=== PATIENT | male | born 1970 ===

== ENCOUNTER 2025-03-02 12:53 | Emergency (ER) | payer OTHER, SELFPAY ==
[2025-03-02 13:28] VITALS: BP 177/99; PULSE 85; RESP 17; TEMP 36.7; O2SAT 99; BMI 29.9
--- NOTE | 2025-03-02 13:30 | EKG_ITS ---
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
--- NOTE | 2025-03-02 13:33 | DI.RAD.S_ITS ---
PROCEDURE: XR CHEST 1V INDICATIONS: Chest Pain TECHNIQUE: One view of the chest was acquired. COMPARISON: None. FINDINGS: Surgical changes and devices: None. Lungs and pleura: Lungs are clear. No pleural effusions or pneumothorax. Mediastinum: Mediastinal contours appear normal. Heart size is normal. Bones and chest wall: No suspicious bony lesions. Overlying soft tissues appear unremarkable. IMPRESSION: No acute cardiopulmonary abnormality is seen. Dictated by: Benjamin John M.D. on 03/02/2025 at 14:23 Approved by: Benjamin John M.D. on 03/02/2025 at 14:23
--- NOTE | 2025-03-02 14:17 | DI.CT.S_ITS ---
PROCEDURE: CT ANGIO HEAD AND NECK INDICATIONS: L arm numbness TECHNIQUE: After the administration of intravenous contrast, 1 mm thick sections acquired from the aortic arch through the [place] of [place]. 3-dimensional rpyxmdo-wyxdzbdvs-rmiylpwdcy (MIP) and/or volume rendering reformats were acquired of the central intracranial vasculature and neck separately. For radiation dose reduction, the following was used: automated exposure control, adjustment of mA and/or kV according to patient size. COMPARISON: None. FINDINGS: Image quality: Diagnostic. Cerebral CT Angiogram: Internal carotid arteries: No acute findings. Intracranial ICA are patent with no significant stenosis. No occlusion. No aneurysm. Anterior cerebral arteries: Unremarkable. No significant stenosis. No occlusion. No aneurysm. Middle cerebral arteries: Unremarkable. No significant stenosis. No occlusion. No aneurysm. Posterior cerebral arteries: Unremarkable. No significant stenosis. No occlusion. No aneurysm. Basilar artery: Unremarkable. No significant stenosis. No occlusion. No aneurysm. Vertebral arteries: Dominant right vertebral artery. Dural venous sinuses: Unremarkable given phase of enhancement. Other: Poor dentition, with multiple periapical lucencies. Neck CT Angiogram: Internal carotid arteries: Unremarkable. No significant stenosis. No dissection or occlusion. Common carotid arteries: Unremarkable. No significant stenosis. No dissection or occlusion. External carotid arteries: Unremarkable. No occlusion. Vertebral arteries: Dominant right vertebral artery with diminutive left vertebral artery throughout its course. Aortic Arch and Mediastinum: Partially visualized aortic arch unremarkable without evidence of aneurysm. Origins of the great vessels unremarkable. Other: Arterial phase soft tissues of the neck and chest are unremarkable. IMPRESSION: No significant intracranial arterial abnormality is seen. No significant abnormality is seen within the arteries of the neck. Poor dentition, with multiple caries and periapical lucencies. Dental referral is recommended. Any quantitative measurements of stenosis were performed using NASCET criteria. Dictated by: Benjamin John M.D. on 03/02/2025 at 15:50 Approved by: Benjamin John M.D. on 03/02/2025 at 15:53
--- NOTE | 2025-03-02 14:17 | DI.CT.S_ITS ---
PROCEDURE: CT HEAD/BRAIN WO CON INDICATIONS: L arm numbness TECHNIQUE: Noncontrast 4.5 mm thick angled axial sections acquired from the foramen magnum to the vertex, with coronal and sagittal reformats. For radiation dose reduction, the following was used: automated exposure control, adjustment of mA and/or kV according to patient size. COMPARISON: None. FINDINGS: Image quality: Diagnostic. CSF spaces: Basal cisterns are patent. No extra-axial fluid collections. The ventricles are symmetric in size and shape. Brain: No intracranial bleeds or mass effect. There is cerebral volume loss, with resultant ventricular and sulcal prominence. There are periventricular and deep white matter chronic small vessel ischemic changes. There is intracranial internal carotid artery atherosclerosis. Skull and face: Calvarium and visualized facial bones appear intact, without suspicious lesions. A couple of subdermal cystic lesions with hyperattenuating components, presumably epidermal inclusion cysts. Sinuses: Visualized sinuses and mastoids are clear. IMPRESSION: No acute intracranial pathology. Dictated by: Benjamin John M.D. on 03/02/2025 at 15:49 Approved by: Benjamin John M.D. on 03/02/2025 at 15:50
[2025-03-02 15:35] LABS: Add Manual Diff / Slide Review NO; Hematocrit 47.4 % (41-53); Hemoglobin 16.1 g/dL (13.5-17.5); Lymphocytes Absolute Auto 1100 /uL (1100-4500); Mean Corpuscular HGB Conc 34.0 % (30-36); Mean Corpuscular Hemoglobin 31.3 PG (26-34); Mean Corpuscular Volume 92.0 fL (80-100); Platelet Count 244 X10^3/uL (150-400)
[2025-03-02 15:47] LABS: INR 1.0 (0.9-1.3); Prothrombin Time 11.1 SECONDS (9.4-12.5)
[2025-03-02 15:50] LABS: PTT Partial Thromboplastin Tim 28 SECONDS (25.1-36.5)
[2025-03-02 16:13] LABS: Alanine Aminotransferase 43 IU/L (<50); Albumin 4.8 g/dL (3.5-5.0); Albumin Globulin Ratio 1.3 (1.0-2.8); Alkaline Phosphatase 81 U/L (38-126); Blood Urea Nitrogen 14 mg/dL (9-20); Calcium 10.1 mg/dL (8.4-10.2); Carbon Dioxide 30 mmol/L (22-32); Chloride 103 mmol/L (98-107); Creatine Kinase 89 U/L (55-170); Estimated Glomerular Filt Rate > 60 mL/min (>60); Globulin 3.8 g/dL (1.7-4.1); Glucose 118 mg/dL (70-99); HEMOLYSIS < 15 (0-50); Lipase 130 U/L (23-300); Magnesium 2.1 mg/dL (1.6-2.3); Potassium 4.3 mmol/L (3.4-5.1); Sodium 142 mmol/L (137-145); Total Protein 8.6 g/dL (6.3-8.2)
[2025-03-02 16:15] LABS: Ethanol (ETOH) < 10 mg/dL (<10)
[2025-03-02 16:21] LABS: NT-proBNP (BNP-Adult 18+) < 20 pg/mL (<125); Troponin I < 0.012 ng/mL (0.01-0.034)
[2025-03-02 17:25] VITALS: BP 164/92; PULSE 66; RESP 16; O2SAT 100
[2025-03-02 17:28] VITALS: BP 173/92; PULSE 69; O2SAT 98
[2025-03-02 17:30] VITALS: BP 176/96; PULSE 65; RESP 12; O2SAT 98
[2025-03-02 18:00] VITALS: BP 150/84; PULSE 66; RESP 11; O2SAT 96
--- NOTE | 2025-03-02 18:17 | ED_ITS ---
HPI - Neuro Symptoms/Deficit General Chief Complaint: Neuro Symptoms/Deficit Stated Complaint: sent from [facility] for signs of heart attack Time Seen by Provider: 03/02/25 13:48 Source: patient Mode of arrival: Ambulatory History of Present Illness HPI Narrative: 54-year-old male patient with a history of anxiety and occasional panic attacks which are currently not treated. Otherwise no health problems or cardiac risk factors. Was pulling a rope at work earlier this morning and had a brief episode of numbness in the left arm lasting less than 5 seconds. No other symptoms. No pain in the arm, no chest pain, shortness of breath, nausea or diaphoresis. Currently without symptoms. He was sent in for cardiac evaluation. On Anticoagulants: No Related Data Allergies Allergy/AdvReac Type Severity Reaction Status Date / Time No Known Drug Allergies Allergy Verified 03/02/25 13:28 Review of Systems Review of Systems ROS Unobtainable: All systems reviewed & are unremarkable except as noted in HPI and below Neurologic Neurologic: Reports as per HPI Hematologic/Lymphatic On Anticoagulants: No Patient History Social History Smoking Status: Current every day smoker Smoking Status: Current every day smoker tobacco type: cigarettes Exam Narrative Exam Narrative: General: Alert and conversant. No distress. Appears well nourished and well hydrated Craniofacial: No evidence of trauma. Nontender and no swelling. Eyes: PERRLA EOMI conjunctiva clear Neck: No tenderness or adenopathy. No meningismus. No JVD Lungs: Nonlabored respiration. Musculoskeletal: Exam of the extremities, axial spine and ribcage reveals no deformity, bony tenderness or swelling. Range of motion intact Neuro: Alert and oriented. Cranial nerves, motor, sensory and cerebellar all grossly intact. No focal deficit Skin: Warm and normal color. No rashes Psychological: Normal affect and interaction. No evidence of delusion or psychosis. Normal mood. Initial Vital Signs Initial Vital Signs: Vital Signs Temperature 98.1 F 03/02/25 13:28 Pulse Rate 85 03/02/25 13:28 Respiratory Rate 17 03/02/25 13:28 Blood Pressure 177/99 H 03/02/25 13:28 Pulse Oximetry 99 03/02/25 13:28 Oxygen Delivery Method Room Air 03/02/25 13:28 Course Orders Ordered: Discontinued Medications Aspirin (Aspirin 81 Mg Chew Tab) 324 mg PO NOW ONE Stop: 03/02/25 13:34 Vital Signs Vital signs: Vital Signs - 8 hr 03/02/25 18:00 03/02/25 18:00 03/02/25 18:30 Pulse Rate 66 68 Respiratory Rate 11 L 17 Blood Pressure 150/84 H Pulse Oximetry 96 98 MDM - Neuro Symptoms/Deficit Lab Data 03/02/25 15:20 03/02/25 15:20 Labs: Lab Results 03/02/25 Range/Units 15:20 WBC 8.4 (4.5-11.0) X10^3/uL RBC 5.15 (4.5-5.9) X10^6/uL Hgb 16.1 (13.5-17.5) g/dL Hct 47.4 (41-53) % MCV 92.0 (80-100) fL MCH 31.3 (26-34) PG MCHC 34.0 (30-36) % RDW 13.4 (11.6-14.8) % Plt Count 244 (150-400) X10^3/uL Neut % (Auto) 77.0 H (50-75) % Lymph % (Auto) 13.7 L (25-40) % Geary % (Auto) 8.2 (3-14) % Eos % (Auto) 0.7 L (2-4) % Baso % (Auto) 0.4 (0-2) % Neut # (Auto) 6400 (1802-9588) /uL Lymph # (Auto) 1100 (5770-8743) /uL Geary # (Auto) 700 (0-900) /uL Eos # (Auto) 100 (0-450) /uL Baso # (Auto) 0 (0-100) /uL PT 11.1 (9.4-12.5) SECONDS INR 1.0 (0.9-1.3) APTT 28 (25.1-36.5) SECONDS Sodium 142 (137-145) mmol/L Potassium 4.3 (3.4-5.1) mmol/L Chloride 103 (98-107) mmol/L Carbon Dioxide 30 (22-32) mmol/L BUN 14 (9-20) mg/dL Creatinine 0.84 (0.66-1.25) mg/dL Estimated GFR > 60 (>60) mL/min BUN/Creatinine Ratio 16.7 (6-22) Glucose 118 H (70-99) mg/dL Calcium 10.1 (8.4-10.2) mg/dL Magnesium 2.1 (1.6-2.3) mg/dL Total Bilirubin 0.5 (0.2-1.3) mg/dL AST 46 (17-59) IU/L ALT 43 (<50) IU/L Alkaline Phosphatase 81 (38-126) U/L Total Creatine Kinase 89 (55-170) U/L Troponin I < 0.012 (0.01-0.034) ng/mL NT-Pro-B Natriuret Pep < 20 (<125) pg/mL Total Protein 8.6 H (6.3-8.2) g/dL Albumin 4.8 (3.5-5.0) g/dL Globulin 3.8 (1.7-4.1) g/dL Albumin/Globulin Ratio 1.3 (1.0-2.8) Lipase 130 (23-300) U/L Ethyl Alcohol < 10 (<10) mg/dL Imaging Data Chest x-ray: Attestation: I personally reviewed and interpreted this imaging study as follows: My Impression: Unremarkable. No acute disease CT scan - head: Radiologist's Impression: No acute intracranial pathology. CTA head and neck: Radiologist's Impression: Impression: No significant intracranial arterial abnormality is seen No significant abnormality seen within the arteries of the neck. Poor dentition, with multiple caries and periapical lucencies. Dental referral is recommended. ECG Data Attestation: I personally reviewed and interpreted this ECG as follows: (Normal sinus rhythm. Possible LAE. Otherwise normal axis and intervals. No ischemic changes) MDM Narrative Medical decision making narrative: Patient had a brief episode of left arm numbness after pulling a rope but no other symptoms. This appears to be a transient radiculopathy or nerve irritation. His workup otherwise is negative. Patient given reassurance and follow up if symptoms recur. Discharge Plan Departure Patient Disposition: Home Clinical Impression: Cervical radiculopathy, Blood pressure elevated without history of HTN, Dental decay Instructions: Tooth Decay, Essential Hypertension, Cervical Radiculopathy Activity Restrictions/Additional Instructions: Assessment: 1. Brief left arm numbness which was probably a nerve irritation/radiculopathy which has resolved. No evidence of cardiac involvement. Test in the ER negative. 2. Elevated blood pressure with a history of elevated blood pressure numbers but no treatment for hypertension. Probable untreated hypertension. 3. Evidence of significant dental decay on CT scan Plan: Monitor blood pressure and collect about 12 blood pressure measurements. Establish primary care and follow up within the next 2 weeks to address both probable untreated hypertension and possibly to address anxiety and panic disorder. Establish dental care and follow up as soon as possible for dental caries and problems. Return to the ER as needed for worse symptoms. Referrals: Miscellaneous,Doctor, MD [Primary Care Provider, Medical] Stand Alone Forms: Patient Portal/API
[2025-03-02 18:30] VITALS: PULSE 68; RESP 17; O2SAT 98
--- NOTE | 2025-03-02 18:30 | PC.NURSE ---
stated no urine test needed
== END 2025-03-02 18:47 | disposition home or self-care (01) ==
PROVIDERS: Family Medicine; Emergency Provider Emergency Medicine
DX: M54.12 Radiculopathy, cervical region (principal); R03.0 Elevated blood-pressure reading, without diagnosis of hypertension; K02.9 Dental caries, unspecified
CPT/HCPCS: 70450; 70496; 70498; 71045; 80053; 80320; 82550; 83690; 83735; 83880; 84484; 85025; 85610; 85730; 93005; 99283; 99284